=== PATIENT | female | born 1950 | race Asian ===

== ENCOUNTER 2019-11-03 01:09 | Outpatient (CLI) | payer MEDICARE, SELFPAY ==
[2019-11-03 14:01] LABS: SARS-CoV-2 RNA PCR Negative
== END 2019-11-03 01:10 | disposition home or self-care (01) ==
LOC: ANHCOVIDDT 01:09
PROVIDERS: PCP Family Medicine; Visit Provider Internal Medicine Gastroenterology
DX: Z01.812 Encounter for preprocedural laboratory examination (principal); Z20.828 Contact with and (suspected) exposure to other viral communicable diseases
CPT/HCPCS: 87635; C9803; U0003

== ENCOUNTER 2019-11-06 02:44 | Day surgery (SDC) | payer MEDICARE, SELFPAY ==
[2019-10-30 11:59] VITALS: BMI 27.6
--- NOTE | 2019-11-06 12:28 | WPDANESEPPF ---
Anes - Initial Pre Proc Eval Procedure: Operation Date: 11/06/19 13:15 Proposed Procedures p Esophagogastroduodenoscopy&Screen Colon - Neil Ortiz MD Date/Time: 11/06/19 12:28 Surgeon: Neil Ortiz MD Pre Op Diagnosis: Dysphagia,Neoplasm Screening Patient Data Age: 69 Gender: F Height: 4 ft 11 in Weight: 62 kg Allergies Allergy/AdvReac Type Severity Reaction Status Date / Time codeine AdvReac Intermediate SOB, FEELS Unverified 10/30/19 11:56 LIKE THROAT IS CLOSING UP White Fish Allergy Severe HIVES, Uncoded 10/18/19 11:01 PASS OUT Home Medications Medication Instructions Recorded Confirmed Type albuterol sulfate 90 mcg/actuation 1 inhalation INHALATION Q4-6H PRN 03/13/19 10/30/19 Rx breath activated powder inhaler #3 each aspirin 81 mg tablet,delayed 81 mg PO DAILY #90 tablet 06/07/19 10/30/19 Rx release azelastine 137 mcg (0.1 %) nasal 1 spray NASAL Q12H #30 ml 07/20/19 10/30/19 Rx spray aerosol fluticasone propionate 50 1 spray NASAL Q12H #18.2 ml 07/20/19 10/30/19 Rx mcg/actuation nasal spray,suspension amlodipine 10 mg tablet 10 mg PO DAILY #90 tablet 08/24/19 10/30/19 Rx losartan 25 mg tablet 25 mg PO DAILY #180 tablet 08/24/19 10/30/19 Rx montelukast 10 mg tablet 10 mg PO .qhs #90 tablet 08/24/19 10/30/19 Rx simvastatin 10 mg tablet 10 mg PO DAILY #90 tablet 08/24/19 10/30/19 Rx alendronate 70 mg tablet 70 mg PO WEEKLY #14 tablet 10/18/19 10/30/19 Rx cholecalciferol (vitamin D3) 50 2,000 unit PO DAILY #90 tablet 10/18/19 10/30/19 Rx mcg (2,000 unit) tablet citalopram 10 mg tablet 10 mg PO DAILY #90 tablet 10/18/19 10/30/19 Rx Patient hx anesthesia problems: none Family hx anesthesia problems: none PMFSH Past Medical History Medical History (Updated 09/10/20 @ 11:52 by Kate Gorman PA-C) Asthma Benign reactive hypertension BP (high blood pressure) CAD (coronary atherosclerotic disease) Colon cancer screening GERD (gastroesophageal reflux disease) Mixed hyperlipidemia Restrictive lung disease Social History Social History Social History: Smoking status: Never smoker Second hand tobacco smoke exposure: No Alcohol intake: never Substance use: never Substance use type: does not use Living arrangements: alone Gender identity (if verbalized by the patient): Female Sexual Orientation (if Verbalized by the Patient): Straight or Heterosexual Spiritual care concerns: No Anes - Eval Final PreProcedure Day of Procedure 11/06/19 12:28 Patient weight: normal Heart: regular rate and rhythm Lungs: clear to auscultation Airway: Mallampati scale class II Neurological: alert and oriented Last oral intake: >/= 8 hours ASA classification: III Emergent: no Anesthetic plan: proceed Anesthesia type and monitoring: general GIVS and standard monitoring Informed Consent: The patient's anesthetic plan and its attendant risks and benefits were discussed with the patient/family/POA. Questions were solicited and answers provided to the satisfaction of the patient/family/POA.
[2019-11-06 12:51] VITALS: BP 134/55; PULSE 58; RESP 18; TEMP 36.5; O2SAT 98; BMI 26.7
--- NOTE | 2019-11-06 12:56 | WPDHPUPDATE1 ---
History and Physical Update Update Date/Time: 11/06/19 12:56 History and Physical has been reviewed, including an updated exam of the patient. There are NO changes in the patient's condition. Risks, benefits, and alternatives have been discussed and questions answered. Patient agrees to proceed with procedure.
[2019-11-06] MEDS: LACTATED RINGERS 1,000 ML 150 ML IV CONT (12:57)
[2019-11-06 13:36] VITALS: BP 88/49; PULSE 60; RESP 17; O2SAT 98
[2019-11-06 13:46] VITALS: BP 96/51; PULSE 63; RESP 14; O2SAT 98
[2019-11-06 13:56] VITALS: BP 111/60; PULSE 65; RESP 20; O2SAT 100
[2019-11-06 14:06] VITALS: BP 122/53; PULSE 61; RESP 16; O2SAT 10
== END 2019-11-06 14:30 | disposition home or self-care (01) ==
PROVIDERS: PCP Family Medicine; Visit Provider Internal Medicine Gastroenterology
PROC: 0DJ08ZZ Inspection of Upper Intestinal Tract, Via Natural or Artificial Opening Endoscopic (ICD-10-PCS; CPT 43235; principal; 2019-11-06 13:15)
DX: Z12.11 Encounter for screening for malignant neoplasm of colon (principal); D12.4 Benign neoplasm of descending colon; K63.89 Other specified diseases of intestine; K64.8 Other hemorrhoids; K29.70 Gastritis, unspecified, without bleeding; K21.0 Gastro-esophageal reflux disease with esophagitis; R13.10 Dysphagia, unspecified; I10 Essential (primary) hypertension; I25.10 Atherosclerotic heart disease of native coronary artery without angina pectoris; J45.909 Unspecified asthma, uncomplicated; E78.2 Mixed hyperlipidemia; Z79.84 Long term (current) use of oral hypoglycemic drugs
CPT/HCPCS: 45380; 43239; 87081; 88305; J2704; J7120

== ENCOUNTER 2019-11-15 16:26 | Outpatient (CLI) | payer MEDICARE, SELFPAY ==
--- NOTE | ~2019-11-15 | MM_ITS ---
EXAMINATION: MM screening birdie BI w jaleel HISTORY: Screening TECHNIQUE: Craniocaudal and mediolateral oblique 3-D tomosynthesis images were obtained and synthetic 2-D images were generated. CAD analysis was submitted and interpreted. COMPARISON: Comparison to multiple prior studies sequentially, with oldest reviewed study dated 10/2014. BREAST PARENCHYMAL COMPOSITION: The breasts are heterogeneously dense, which may obscure small masses . FINDINGS: There is no evidence of suspicious mass, calcification, or architectural distortion to sugg est malignancy in either breast. There has been no suspicious interval change. IMPRESSION: 1. No mammographic evidence of malignancy. 2. Recommend routine screening mammography in one year. BI-RADS Category 1: Negative Reviewed, dictated and finalized at location A.
== END 2019-11-15 16:27 | disposition home or self-care (01) ==
PROVIDERS: PCP Family Medicine; Visit Provider Physician Assistant
DX: Z12.31 Encounter for screening mammogram for malignant neoplasm of breast (principal)
CPT/HCPCS: 77063; 77067

== ENCOUNTER 2020-04-21 15:10 | Outpatient (CLI) | payer MEDICARE, SELFPAY | END 2020-04-21 15:11 | disposition home or self-care (01) | LOC: ANHCOVIDVC 15:10 | PROVIDERS: PCP Family Medicine | DX: Z23 Encounter for immunization (principal) | CPT/HCPCS: 0001A; 91300 ==

== ENCOUNTER 2020-05-12 15:17 | Outpatient (CLI) | payer MEDICARE, SELFPAY | END 2020-05-12 15:18 | disposition home or self-care (01) | LOC: ANHCOVIDVC 15:17 | PROVIDERS: PCP Family Medicine | DX: Z23 Encounter for immunization (principal) | CPT/HCPCS: 0002A; 91300 ==

== ENCOUNTER 2020-11-19 13:42 | Outpatient (CLI) | payer MEDICARE, SELFPAY ==
--- NOTE | ~2020-11-19 | DEXA_ITS ---
Bone Density Report Name: Laura Guillory Age: 70 Sex: Female Ethnicity: Date of : 1950 Indication: postmenopausal osteoporosis; monitoring treatment; height loss; prior fracture; Referring Provider: Jessie Solomon Study: Bone densitometry was performed. Exam Date: November 19, 2020 Accession number: [id number] Bone Density: Region BMD T-score Z-score Classification AP Spine (L1-L4) 0.755 -2.7 -0.5 Osteoporosis Femoral Neck (Left) 0.602 -2.2 -0.3 Osteopenia Total Hip (Left) 0.819 -1.0 0.6 Normal Total Hip Bilateral Avg 0.794 -1.2 0.4 Osteopenia Femoral Neck (Right) 0.580 -2.4 -0.5 Osteopenia Total Hip (Right) 0.768 -1.4 0.2 Osteopenia World Health Organization criteria for BMD impression classify patients as: Normal (T-score at or above -1.0), Osteopenia (T-score between -1.0 and -2.5), or Osteoporosis (T-score at or below -2.5). 10-year Fracture Risk: FRAX not reported because: Some T-score for Spine Total or Hip Total or Femoral Neck at or below -2.5 Treated for osteoporosis Previous Exams: Region Exam Age BMD T-score BMD Change BMD Change Date g/cm2 vs Baseline vs Previous AP Spine(L1-L4) 11/19/2020 70 0.755 -2.7 -0.013(-1.7%)# 0.099(15.1%)# 11/02/2018 68 0.656 -3.6 -0.112(-14.6%) -0.055(-7.7%)# 07/27/2016 66 0.711 -3.1 -0.057(-7.5%)# -0.022(-3.0%) 04/15/2014 63 0.733 -2.9 -0.035(-4.6%)# 0.002(0.3%)# 09/22/2011 61 0.731 -2.9 -0.037(-4.9%)# 0.022(3.1%)# 02/15/2009 58 0.709 -3.1 -0.059(-7.7%)* 0.006(0.8%) 01/29/2008 57 0.703 -3.1 -0.065(-8.5%)* -0.095(-11.9%) 04/22/2005 55 0.798 -2.3 0.030(3.9%)* 0.030(3.9%)* 03/16/2003 52 0.769 -2.5 Total Hip(Left) 11/19/2020 70 0.819 -1.0 0.043(5.5%)# 0.005(0.6%) 11/02/2018 68 0.814 -1.1 0.038(4.9%)# 0.036(4.7%)* 07/27/2016 66 0.777 -1.3 0.002(0.2%)# -0.036(-4.5%)* 04/15/2014 63 0.814 -1.1 0.038(4.9%)# 0.022(2.7%)# 09/22/2011 61 0.792 -1.2 0.016(2.1%)# 0.011(1.4%)# 02/15/2009 58 0.781 -1.3 0.006(0.8%) -0.014(-1.7%) 01/29/2008 57 0.795 -1.2 0.019(2.5%) -0.013(-1.6%) 04/22/2005 55 0.808 -1.1 0.033(4.2%)* 0.033(4.2%)* 03/16/2003 52 0.776 -1.4 Total Hip(Right) 11/19/2020 70 0.768 -1.4 -0.001(-0.1%)# -0.007(-1.0%) 11/02/2018 68 0.775 -1.4 0.007(0.8%)# 0.017(2.3%) 07/27/2016 66 0.758 -1.5 -0.011(-1.4%)# -0.029(-3.7%)* 04/15/2014 63 0.787 -1.3 0.018(2.4%)# 0.004(0.5%)# 09/22/2011 61 0.783 -1.3 0.014(1.9%)# -0.008(-1.0%)# 02/15/2009 58 0.791 -1.2 0.022(2.9%) 0.033(4.3%)* 01/29/2008 57 0.758 -1.5
--- NOTE | ~2020-11-19 | MM_ITS ---
EXAMINATION: MM screening birdie BI w jaleel HISTORY: Screening TECHNIQUE: Craniocaudal and mediolateral oblique 3-D tomosynthesis images were obtained and synthetic 2-D images were generated. CAD analysis was submitted and interpreted. COMPARISON: Comparison to multiple prior studies sequentially, with oldest reviewed study dated 04/20. BREAST PARENCHYMAL COMPOSITION: The breasts are heterogeneously dense, which may obscure small masses . FINDINGS: There is no evidence of suspicious mass, calcification, or architectural distortion to sugg est malignancy in either breast. There has been no suspicious interval change. IMPRESSION: 1. No mammographic evidence of malignancy. 2. Recommend routine screening mammography in one year. BI-RADS Category 1: Negative Reviewed, dictated and finalized at location A.
== END 2020-11-19 13:43 | disposition home or self-care (01) ==
LOC: ANHIMG 13:45
PROVIDERS: PCP Family Medicine; Visit Provider Student in an Organized Health Care Education/Training Program
DX: Z12.31 Encounter for screening mammogram for malignant neoplasm of breast (principal); Z78.0 Asymptomatic menopausal state; M81.0 Age-related osteoporosis without current pathological fracture; M85.851 Other specified disorders of bone density and structure, right thigh; M85.852 Other specified disorders of bone density and structure, left thigh
CPT/HCPCS: 77063; 77067; 77080

== ENCOUNTER 2020-12-18 01:18 | Day surgery (SDC) | payer MEDICARE, SELFPAY ==
[2020-12-12 09:05] VITALS: BMI 26.5
--- NOTE | 2020-12-12 09:10 | PC.NURSE ---
Report to the Outpatient Waiting Room, entrance under the green pavilion located off [facility], at time __729 on date _12/18/20 . OR Time: . - You and your visitor will be asked a series of questions to screen for COVID 19 for your protection. - A mask is required within the hospital. - Only one visitor is allowed at this time. Patient visitors will be guided where to wait when not with patient. Preoperative COVID Testing Requirements: No COVID Test needed if: (proof is required; if not received patient will have Rapid Test prior to entry) - Patient has received COVID Vaccine at least 14 days prior to procedure date or - Patient has positive COVID test result within last 90 days of surgery date. COVID Test needed if above criteria is not met If not COVID vaccinated a COVID test must be conducted within 72 hours of surgery and patient is asked to isolate self from time of testing until procedure. You will go to the [facility] for your COVID testing. The [facility] site is located at the corner of [address] [facility]. You will only be called if COVID results are positive and your surgeon may reschedule your elective surgery date. Patients may have clear liquids (water, carbonated beverages, clear teas, apple juice) until 3 hours prior to surgery with a maximum of 20 ounces. - No food from midnight until time of surgery - Infants may have breast milk until 4 hours before surgery, infant formula 6 hours prior to surgery. - Children will be allowed to drink immediately following surgery. If applicable, please bring a bottle or sippy cup to assist with drinking. Juice, water, soda, and popsicles are readily available. For infants on formula, please bring formula the day of surgery. Pacifiers are allowed. Take the following medications with a SIP of water the morning of surgery: _AMLODIPINE,CITALOPRAM, INHALER IF NEEDED Medications to discontinue per physician ____ALL VITAMINS AND SUPPLEMENTS Date to take last dose___12/14/20 Please no make-up, nail bruneian, hairspray, perfume, deodorant, or body powder the day of surgery. No jewelry (including any body piercings) or valuables the day of surgery, leave them at home. Please take a shower or bath the night before, or the morning of, surgery with an antibacterial soap. Wear comfortable, loose fitting clothing. Children are encouraged to wear pajamas. - Jewelry must be removed prior to entering the operating room. Rings and piercings that are not removed may be cut off. - The hospital will not accept responsibility for valuables. - Please leave all valuables, including medications, at home the day of surgery. If you are going home after surgery, a licensed regional otr company driver must drive you home. - NO public transportation without another adult. - We recommend that an adult stay with you for 24 hours following discharge. - We also recommend that you do not drive, make important decision, drink alcoholic beverages, or take any drugs that were not prescribed by your health care provider for at least 24 hours after your discharge time. For Pediatric surgeries, we recommend two adults accompany the child home (only one inside the building at this time). Follow any additional instructions given to you from your surgeon. Telephone instructions given to _PATIENT and asked if any additional questions and then verbalized understanding. Patient advised to call surgeon office or pre surgery nurse liaison [phone] if any additional questions.
--- NOTE | 2020-12-17 13:46 | WPDANESEPPF ---
Anes - Initial Pre Proc Eval Procedure: Operation Date: 12/18/20 09:30 Proposed Procedures p Partial Palmar Fasciectomy Right Fifth Finger - Lei Hughes MD Date/Time: 12/17/20 13:46 Surgeon: Lei Hughes MD Pre Op Diagnosis: Dupuytren's Fracture Right Fifth Finger Patient Data Age: 70 Gender: F Height: 1.52 m Weight: 61.7 kg Allergies Allergy/AdvReac Type Severity Reaction Status Date / Time codeine AdvReac Intermediate SOB, FEELS Verified 12/18/20 07:49 LIKE THROAT IS CLOSING UP White Fish Allergy Severe HIVES, Uncoded 12/18/20 07:49 PASS OUT Home Medications Medication Instructions Recorded Confirmed Type calcium carbonate 600 mg calcium 600 mg PO DAILY 04/14/20 12/18/20 History (1,500 mg) tablet citalopram 10 mg tablet 10 mg PO BID #180 tablet 07/22/20 12/18/20 Rx alendronate 70 mg tablet 70 mg PO WEEKLY #14 tablet 08/11/20 12/18/20 Rx albuterol sulfate 90 mcg/actuation 1 inh INHALATION Q4-6H PRN #3 each 11/18/20 12/18/20 Rx breath activated powder inhaler amlodipine 10 mg tablet 10 mg PO DAILY #90 tablet 11/18/20 12/18/20 Rx cholecalciferol (vitamin D3) 50 2,000 unit PO DAILY #90 tablet 11/18/20 12/18/20 Rx mcg (2,000 unit) tablet omeprazole 20 mg capsule,delayed 20 mg PO DAILY #90 cap 11/18/20 12/18/20 Rx release simvastatin 10 mg tablet 10 mg PO DAILY #90 tablet 11/18/20 12/18/20 Rx aspirin 81 mg PO HS 12/12/20 12/18/20 History losartan 25 mg PO QPM 12/12/20 12/18/20 History montelukast 10 mg PO HS 12/12/20 12/18/20 History Patient hx anesthesia problems: none Family hx anesthesia problems: none Results Review: All pre-operative results and documents have been reviewed as part of the pre-operative evaluation. [facility] Past Medical History Medical History (Updated 12/17/20 @ 13:47 by Honorio Billy MD) Anxiety Asthma Benign reactive hypertension BP (high blood pressure) CAD (coronary atherosclerotic disease) Colon cancer screening TAINA (generalized anxiety disorder) GERD (gastroesophageal reflux disease) Major depressive disorder, recurrent, moderate Mixed hyperlipidemia Osteoporosis Palmar fibromatosis Restrictive lung disease Sacroiliac joint pain Trigger finger of right hand Family History Family History Father Hypertension Cerebrovascular accident Mother Family history of heart disease in male family member before age 55 Patient's mother is Sibling Patient's sister is Patient's brother is Hypertension Social History Social History (Updated 11/18/20 @ 10:35 by Ciera Nicole) Social History: Smoking status: Never smoker Second hand tobacco smoke exposure: No Alcohol intake: never Substance use: never Substance use type: does not use Living arrangements: with family Gender identity (if verbalized by the patient): Female Sexual Orientation (if Verbalized by the Patient): Straight or Heterosexual Spiritual care concerns: No Anes - Eval Final PreProcedure Day of Procedure 12/17/20 13:46 Patient weight: overweight Heart: regular rate and rhythm Lungs: clear to auscultation and normal air movement Airway: Mallampati scale class II Neurological: alert and oriented Last oral intake: >/= 8 hours ASA classification: III Emergent: no Anesthetic plan: proceed Anesthesia type and monitoring: general GIVS Results Review: All pre-operative results and documents have been reviewed as part of the pre-operative evaluation. Informed Consent: The patient's anesthetic plan and its attendant risks and benefits were discussed with the patient/family/POA. Questions were solicited and answers provided to the satisfaction of the patient/family/POA.
--- NOTE | 2020-12-18 07:14 | WPDHPUPDATE1 ---
History and Physical Update Update Date/Time: 12/18/20 07:14 History and Physical has been reviewed, including an updated exam of the patient. There are NO changes in the patient's condition. Risks, benefits, and alternatives have been discussed and questions answered. Patient agrees to proceed with procedure.
--- NOTE | 2020-12-18 07:15 | WPDHPUPDATE1 ---
History and Physical Update Update Date/Time: 12/18/20 The diagnosis i07:15 The diagnosis is Dupuytren's contracture not fracture. History and Physical has been reviewed, including an updated exam of the patient. There are NO changes in the patient's condition. Risks, benefits, and alternatives have been discussed and questions answered. Patient agrees to proceed with procedure.
[2020-12-18] MEDS: LACTATED RINGERS 1,000 ML 30 ML IV CONT (08:12)
[2020-12-18 08:15] VITALS: BP 114/53; PULSE 57; RESP 16; TEMP 36.8; O2SAT 100
[2020-12-18] MEDS: BACITRACIN OINTMENT 15 GM TUBE 1 APPLIC TOPICAL (09:24)
[2020-12-18] MEDS: LIDO 1%/EPINEPHRINE 1:100,000 50 ML VIAL 12 ML INFILTRATE (09:24)
[2020-12-18 10:47] VITALS: BP 100/48; PULSE 66; RESP 16; O2SAT 96
--- NOTE | 2020-12-18 11:10 | W.PM.PROC2 ---
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 The patient was taken to the operating room placed supine on the operating table. A time-out was held and confirmed. She was given IV sedation extremity was prepped and draped in usual fashion. The site was marked for an incision for a radially based flap with diagonal extensions.. The digit was anesthetized with 1% lidocaine with epinephrine. The hand was elevated and the tourniquet inflated to 250 mmHg. The incisions were made as marked and skin flaps elevated. This exposed the Dupuytren's nodule extending off the abductor digiti minimi. This was also a spiral cord concealing the ulnar digital neurovascular bundle there was no nodule or cord on the radial side. This mass was carefully dissected free from the neurovascular bundle and taken off the tendon sheath. It also required sacrifice of the abductor tendon as well. Removal of this allowed full extension the proximal interphalangeal joint. The tourniquet was released very little cautery was utilized we held the hand for hemostasis for about 5 minutes. The wound was closed with a running 5 0 nylon suture in a single layer she is a prescription for hydrocodone 6 Estimated Blood Loss 6 Drains No Packing No Pathology none sent Complications No immediate complications Condition stable Disposition same day
[2020-12-18 11:15] VITALS: BP 110/54; PULSE 59; RESP 16; O2SAT 97
[2020-12-18 11:45] VITALS: BP 100/48; PULSE 65; RESP 16
== END 2020-12-18 11:55 | disposition home or self-care (01) ==
PROVIDERS: PCP Family Medicine; Visit Provider Plastic Surgery
PROC: (CPT 26045; principal; 2020-12-18 09:30)
DX: M72.0 Palmar fascial fibromatosis [Dupuytren] (principal); I25.10 Atherosclerotic heart disease of native coronary artery without angina pectoris; I10 Essential (primary) hypertension; J45.909 Unspecified asthma, uncomplicated; F41.1 Generalized anxiety disorder; K21.9 Gastro-esophageal reflux disease without esophagitis; F33.1 Major depressive disorder, recurrent, moderate; E78.2 Mixed hyperlipidemia; M81.0 Age-related osteoporosis without current pathological fracture; Z79.82 Long term (current) use of aspirin; Z79.51 Long term (current) use of inhaled steroids
CPT/HCPCS: 26123; A9270; J1100; J2405; J2704; J3010; J7120

== ENCOUNTER 2022-05-19 07:28 | Outpatient (CLI) | payer MEDICARE, SELFPAY ==
--- NOTE | ~2022-05-19 | XR_ITS ---
EXAMINATION: XR chest 2V 05/19/2022 07:51 INDICATION: Asthma. PROCEDURE: 2 view chest COMPARISON: 08/25/2018 FINDINGS: The lungs are clear. The cardiomediastinal silhouette is within normal limits. There are no pleural effusions. There is no pneumothorax suspected. IMPRESSION: 1: NO ACUTE CARDIOPULMONARY DISEASE. Reviewed, dictated and finalized at location D.
[2022-05-19 08:33] LABS: Basophils Percent Auto 0.2 % (0.2-1.2); Eosinophils Absolute Auto 0.2 K/mm3 (0-0.3); Eosinophils Percent Auto 4.6 % (0-4.4); Hematocrit 43.6 % (37.0-47.0); Hemoglobin 14.1 g/dL (12.0-15.0); Immature Granulocyte Absolute 0.01 K/mm3 (0.00-0.031); Immature Granulocyte Percent A 0.2 % (0-0.5); Lymphocytes Absolute Auto 2.02 K/mm3 (0.9-3.2); Lymphocytes Percent Auto 44.4 % (18.3-44.2); Mean Corpuscular HGB Conc 32.3 g/dl (32-36); Mean Corpuscular Volume 92.8 fl (80-100); Mean Platelet Volume 10.6 fl (7.4-10.4); Monocytes Absolute Auto 0.3 K/mm3 (0.1-0.6); Monocytes Percent Auto 6.2 % (2.6-8.5); Neutrophils Percent Auto 44.4 % (45.5-73.1); Platelet Count Result 215 k/mm3 (150-375); Red Cell Distribution Width 12.4 % (11.5-14.5); White Blood Count 4.6 K/mm3 (4.5-10.0)
[2022-05-19 08:53] LABS: Alanine Aminotransferase 24 U/L (6-35); Albumin Level 4.4 g/dL (3.5-5.1); Alkaline Phosphatase 53 U/L (38-126); Anion Gap 4 mmol/L (8-16); Aspartate Amino Transferase 28 U/L (14-36); Bilirubin,Total 0.5 mg/dL (0.2-1.3); Blood Urea Nitrogen 11 mg/dL (7-17); Carbon Dioxide 33 mmol/L (22-30); Chloride 105 mmol/L (98-107); Cholesterol 165 mg/dL (0-200); Estimated Glomerular Filt Rate > 60; Glucose 105 mg/dL (65-110); HDL Direct 49 mg/dL; Potassium 3.6 mmol/L (3.4-5.0); Sodium 142 mmol/L (137-145); Triglycerides 56 mg/dL (<150)
[2022-05-19 09:04] LABS: LDL Cholesterol Direct 91 mg/dL
== END 2022-05-19 07:29 | disposition home or self-care (01) ==
PROVIDERS: PCP Family Medicine; Visit Provider Nurse Practitioner Gerontology
DX: J45.909 Unspecified asthma, uncomplicated (principal); I10 Essential (primary) hypertension; E78.2 Mixed hyperlipidemia
CPT/HCPCS: 36415; 71046; 80053; 80061; 85025

== ENCOUNTER 2022-06-08 08:40 | Outpatient (CLI) | payer MEDICARE, SELFPAY ==
[2022-06-08 08:56] LABS: Appearance Urine Clear (Clear); Bilirubin Urine Negative (Negative); Blood Urine Negative (Negative); Color Urine Yellow (Yellow); Glucose Urine UA Negative (Negative); Ketones Urine Negative (Negative); Leukocyte Esterase Ur Negative LEU/UL (Negative); Nitrate Urine Negative (Negative); Protein Urine Negative (Negative); Specific Grav Ur 1.014 (1.001-1.035); Urobilinogen Urine 0.2 mg/dL (<2.0)
[2022-06-08 09:08] LABS: Add Urine Microscopic? NO
== END 2022-06-08 08:41 | disposition home or self-care (01) ==
LOC: ANHLAB 08:41
PROVIDERS: PCP Family Medicine; Visit Provider Obstetrics & Gynecology
DX: R31.9 Hematuria, unspecified (principal)
CPT/HCPCS: 81001; 81003

== ENCOUNTER 2022-07-22 15:02 | Outpatient (CLI) | payer MEDICARE, SELFPAY ==
--- NOTE | ~2022-07-22 | MM_ITS ---
EXAMINATION: MM screening birdie BI w jaleel HISTORY: Screening mammogram TECHNIQUE: Craniocaudal and mediolateral oblique 3-D tomosynthesis images were obtained and synthetic 2-D images were generated. CAD analysis was submitted and interpreted. COMPARISON: 11/19/2020, 11/15/2019 bilateral screening mammogram examinations 11/07/2018 diagnostic right mammogram and complete right breast ultrasound 10/02/2018 bilateral screening mammogram BREAST PARENCHYMAL COMPOSITION: The breasts are heterogeneously dense, which may obscure small masses . FINDINGS: There is no evidence of suspicious mass, calcification, or architectural distortion to sugg est malignancy in either breast. There has been no suspicious interval change. IMPRESSION: 1. No mammographic evidence of malignancy. 2. Recommend routine screening mammography in one year. BI-RADS Category 1: Negative Reviewed, dictated and finalized at location A.
== END 2022-07-22 15:03 | disposition home or self-care (01) ==
LOC: ANHIMG 15:03
PROVIDERS: PCP Family Medicine; Visit Provider Student in an Organized Health Care Education/Training Program
DX: Z12.31 Encounter for screening mammogram for malignant neoplasm of breast (principal)
CPT/HCPCS: 77063; 77067

== ENCOUNTER 2022-10-27 08:14 | Outpatient (CLI) | payer MEDICARE, SELFPAY ==
--- NOTE | ~2022-10-27 | US_ITS ---
Limited Abdominal Sonogram: Real-time sonographic imaging of the right upper quadrant was performed. Clinical History: Abdominal pain Findings: The liver appears normal with no evidence of mass lesion or bile duct dilatation. Main por kendall vein demonstrates normal direction of flow. The gallbladder is well distended, and appears normal with no evidence of gallstone or wall thickening. The common bile duct is nondilated. The visualize d pancreas, aorta, and IVC are unremarkable. Impression: No significant abnormality seen. Reviewed, dictated and finalized at location M. Impression: No significant abnormality seen.
== END 2022-10-27 08:15 | disposition home or self-care (01) ==
PROVIDERS: PCP Family Medicine; Visit Provider Physician Assistant
DX: R10.11 Right upper quadrant pain (principal)
CPT/HCPCS: 76705

== ENCOUNTER → 2022-12-01 09:42 | Outpatient (CLI) | payer MEDICARE, SELFPAY ==
--- NOTE | ~2022-12-01 | XR_ITS ---
XR_[id number]_CR 12/01/2022 09:55 Indication: Cervicalgia Procedure: 6 view cervical spine Comparison: 04/01/2007 Findings: Straightening of cervical lordosis. There is disc narrowing and endplate hypertrophy at C4- 5 and C5-6. There is multilevel uncinate and facet hypertrophy. No fracture or traumatic malalignment . Odontoid process is normal. Lateral masses normally aligned. Impression: 1: Moderate cervical spondylosis. Reviewed, dictated and finalized at location B. Impression: 1: Moderate cervical spondylosis.
== END ==
PROVIDERS: PCP Family Medicine; Visit Provider Physician Assistant
DX: M43.02 Spondylolysis, cervical region (principal)
CPT/HCPCS: 72040

== ENCOUNTER 2022-12-27 07:36 | Outpatient (CLI) | payer MEDICARE, SELFPAY ==
--- NOTE | ~2022-12-27 | DEXA_ITS ---
Bone Density Report Name: HARPREET BLISS Age: 72 Sex: Female Ethnicity: A Date of : 1950 Indication: postmenopausal; screening for osteoporosis; asthma or emphysema; Referring Provider: HANS LEE Study: Bone densitometry was performed. Exam Date: December 27, 2022 Accession number: [id number] Bone Density: Region BMD T-score Z-score Classification AP Spine(L1-L4) 0.737 -2.8 -0.5 Osteoporosis Femoral Neck (Left) 0.588 -2.3 -0.3 Osteopenia Total Hip (Left) 0.811 -1.1 0.6 Osteopenia Femoral Neck (Right) 0.584 -2.4 -0.4 Osteopenia Total Hip (Right) 0.754 -1.5 0.2 Osteopenia Total Hip Mean 0.783 -1.3 0.4 Osteopenia World Health Organization criteria for BMD impression classify patients as: Normal (T-score at or above -1.0), Osteopenia (T-score between -1.0 and -2.5), or Osteoporosis (T-score at or below -2.5). 10-year Fracture Risk: FRAX not reported because: Some T-score for Spine Total or Hip Total or Femoral Neck at or below -2.5 Treated for osteoporosis Clinical Information Provided by Patient: Is being treated for osteoporosis Has used the following medications: Fosamax (i.e. alendronate), Vitamin D, Calcium Has the following medical conditions: Asthma or Emphysema Patient maximum height was 60 Menopause Age: 44 No regular weight bearing exercise Drinks caffeinated beverages Onset of menses at age 17 Number of children 1 Impression: The patient has osteoporosis, based on the Total Spine T-score. Discussion: It is important to ask patients whether they are taking their medications and to encourage continued and appropriate compliance with their osteoporosis therapies to reduce fracture risk. It is also important to review their risk factors and encourage appropriate calcium and vitamin D intakes, exercise, fall prevention and other lifestyle measures. Follow-Up: Consider a repeat BMD and Vertebral Fracture Assessment (VFA) exam in 2 years or sooner if medically necessary, to reassess this patient's status. Reported by: ANGIE on 12/27/2022 8:09:00 AM. Reviewed, dictated and finalized at location AScott BEASLEY
== END 2022-12-27 07:37 | disposition home or self-care (01) ==
LOC: ANHIMG 07:38
PROVIDERS: PCP Family Medicine; Visit Provider Obstetrics & Gynecology
DX: Z78.0 Asymptomatic menopausal state (principal); M81.0 Age-related osteoporosis without current pathological fracture; M85.89 Other specified disorders of bone density and structure, multiple sites
CPT/HCPCS: 77080

== ENCOUNTER 2023-05-26 09:11 | Emergency (ER) | payer MEDICARE, SELFPAY ==
[2023-05-26 09:23] VITALS: BP 102/50; PULSE 70; RESP 18; TEMP 36.4; O2SAT 100
--- NOTE | 2023-05-26 09:32 | ED.URI ---
HPI - URI/Sore Throat General Chief Complaint: Upper Respiratory Infection Stated Complaint: Cough Time Seen by Provider: 05/26/23 09:32 Source: patient, RN notes reviewed and old records reviewed Mode of arrival: ambulatory Limitations: no limitations History of Present Illness HPI Narrative: 73-year-old female presents to the [facility] with a cough since , approximately 3 weeks. Patient did see her doctor 8 days ago on May 17 for the cough. Was prescribed singular, prednisone and doxycycline. Patient states that the cough has not changed. Patient is concerned because she is leaving for the [facility] in 13 days and does not want have cough. States the cough is worse at night. Patient reports a history of asthma but is not having any problems breathing or chest pain. Onset (ago): week(s) (Three weeks) Related Data Home Medications Medication Instructions Recorded Confirmed aspirin 81 mg tablet,delayed 81 mg PO HS 12/12/20 05/26/23 release omega [id number]-wuf-fish oil 60 mg-90 1 cap PO DAILY 03/07/23 05/26/23 mg-500 mg capsule (Fish Oil) Allergies Allergy/AdvReac Type Severity Reaction Status Date / Time codeine AdvReac Intermediate SOB, FEELS Verified 05/26/23 09:13 LIKE THROAT IS CLOSING UP White Fish Allergy Severe HIVES, Uncoded 05/26/23 09:13 PASS OUT Review of Systems Review of Systems: All systems reviewed & are unremarkable except as noted in HPI and below Constitutional: Constitutional: Reports no additional constitutional complaints Eyes: Eyes: Reports no additional eye complaints ENT: Reports system reviewed and no additional complaints, except as documented Cardiovascular: Cardiovascular: Reports no additional cardiovascular complaints, Denies chest pain and Denies dyspnea Respiratory: Respiratory: Reports as per HPI, Denies chest congestion, Reports cough and Denies dyspnea Gastrointestinal: Gastrointestinal: Reports no additional gastrointestinal complaints, Denies abdominal pain, Denies nausea and Denies vomiting Musculoskeletal: Musculoskeletal: Reports no additional musculoskeletal complaints Integumentary/Breasts: Skin/Breast: Reports system reviewed and no additional complaints, except as docu Neurologic: Reports system reviewed and no additional complaints, except as documented Psychiatric: Psychiatric: Reports no additional psychiatric complaints Allergic/Immunologic: Allergic/Immunologic: Reports no additional allergic/immunologic complaints PMFSH Past Medical History Medical History Anxiety Asthma Benign reactive hypertension BP (high blood pressure) CAD (coronary atherosclerotic disease) Colon cancer screening TAINA (generalized anxiety disorder) GERD (gastroesophageal reflux disease) Major depressive disorder, recurrent, moderate Mixed hyperlipidemia Osteoporosis Palmar fibromatosis Restrictive lung disease Sacroiliac joint pain Trigger finger of right hand Surgical History Surgical History History of hand surgery Family History Family History Father Hypertension Cerebrovascular accident Mother Family history of heart disease in male family member before age 55 Patient's mother is Sibling Patient's sister is Patient's brother is Hypertension Social History Social History Social History: Smoking status: Never smoker Second hand tobacco smoke exposure: No Alcohol intake: never Substance use: never Substance use type: does not use Do You Feel Safe in your Home?: Yes Lack of Transportation: No Lack of Food: Sometimes True Current Housing: I Have Housing Concerned About Future Housing: No Difficulty Paying Gas/Electric Bills: No D
== END 2023-05-26 09:51 | disposition home or self-care (01) ==
PROVIDERS: Emergency Provider Nurse Practitioner; PCP Nurse Practitioner Family
DX: R09.82 Postnasal drip (principal); J30.2 Other seasonal allergic rhinitis; I25.10 Atherosclerotic heart disease of native coronary artery without angina pectoris; K21.9 Gastro-esophageal reflux disease without esophagitis; E78.2 Mixed hyperlipidemia; M81.0 Age-related osteoporosis without current pathological fracture; J45.909 Unspecified asthma, uncomplicated; I10 Essential (primary) hypertension; Z79.82 Long term (current) use of aspirin; F41.1 Generalized anxiety disorder; F33.9 Major depressive disorder, recurrent, unspecified
CPT/HCPCS: 99213; G0463

== ENCOUNTER 2024-04-02 10:45 | Outpatient (CLI) | payer MEDICARE, SELFPAY ==
--- OUTSIDE RECORDS SUMMARY | 2024-04-02 12:26 | XMS_ITS | Clinical Summary ---
Author Organization [facility] Care Team Providers Care End Worker Name Role Phone Unavailable Primary Care Provider Unavailabl e Social History Tobacco Use Types Packs/Day Years Used Date Smoking Tobacco: Never Assessed Comments Unknown Sex and Gender Information Value Date Recorded Sex Assigned at Not on file Legal Sex Female 7:49 PM CDT Gender Identity Not on file Sexual Orientation Not on file Plan of Treatment Not on file
--- OUTSIDE RECORDS SUMMARY | 2024-04-02 12:26 | XMS_ITS | Clinical Summary ---
Author Organization [facility] [place] [address] Address [address] [place] [address] Care Team Providers Care Supervisor Prop Making Name Role Phone Sirisha Vargas MD Primary Care Provider Allergies Active Allergy Reactions Criticality Noted Date Comments Codeine Unknown 09/16/2022 Hydrocodone-Acetaminophen Unknown 09/06/2018 Medications solifenacin (VESIcare) 5 mg tablet Take 1 tablet (5 mg total) by mouth daily 3 Active omeprazole (PriLOSEC) 40 mg capsule Take 1 capsule (40 mg total) by mouth daily 3 Active losartan (COZAAR) 25 mg tablet Take 1 tablet (25 mg total) by mouth daily Active simvastatin (ZOCOR) 10 mg tablet Take 1 tablet (10 mg total) by mouth nightly Active citalopram (CeleXA) 10 mg tablet Take 1 tablet (10 mg total) by mouth daily Active amLODIPine (NORVASC) 10 mg tablet Take 1 tablet (10 mg total) by mouth daily Active aspirin 81 mg enteric coated tablet Take 1 tablet (81 mg total) by mouth daily Active fluticasone propionate (FLONASE) 50 mcg/actuation nasal sprayIndications :Allergic rhinitis due to pollen, unspecified seasonality Administer 2 sprays into each nostril daily 2 each 3 3 Active cetirizine (ZyrTEC) 10 mg tabletIndication s:Allergic rhinitis due to pollen, unspecified seasonality Take 1 tablet (10 mg total) by mouth daily 30 tablet 3 3 Active Active Problems Problem Noted Date Diagnosed Date Tinnitus of both ears 09/16/2022 Allergic rhinitis due to pollen 09/16/2022 Sensorineural hearing loss (SNHL) of both ears 0 09/16/2022 Surgical History Surgery Date Site/Laterality Comments EAR SURGERY Right SECTION FINGER SURGERY TONSILLECTOMY EYE SURGERY cataracts Medical History Medical History Date Comments Allergic rhinitis Asthma Anxiety Cataracts, bilateral Hypertension HL (hearing loss) GERD (gastroesophageal reflux disease) Family History Medical History Relation Name Comments Hypertension Father Hypertension Mother Relation Name Status Comments Father Mother Social History Tobacco Use Types Packs/Day Years Used Date Smoking Tobacco: Never Smokeless Tobacco: Never Tobacco Cessation:Counseling Given: Not Answered Personal Safety Answer Date Recorded Getting School Help Needed Not on file 04/03 Comments Unknown Sex and Gender Information Value Date Recorded Sex Assigned at Not on file 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 Gender Identity Not on file Sexual Orientation Not on file Obstetrics History Last Filed Vital Signs Vital Sign Reading Time Taken Comments Blood Pressure - - Pulse - - Temperature - - Respiratory Rate 18 09/16/2022 2:50 PM CDT Oxygen Saturation - - Inhaled Oxygen Concentration - - Weight 60.3 kg (133 lb) 09/16/2022 2:50 PM CDT Height 152.4 cm (5') 09/16/2022 2:50 PM CDT Body Mass Index 25.97 09/16/2022 2:50 PM CDT Plan of Treatment Health Maintenance Due Date Last Done Comments Breast Cancer Screening-Mammogram 1950 Colon Cancer Screening-Colonoscopy 1950 Depression Screening 1950 Fall Risk Assessment 1950 Hepatitis C Screening 1950 Osteoporosis Screening-Bone Density Scan 1949 DTaP/Tdap/Td Vaccine (1 - Tdap) 1960 Hepatitis B Screening 04/19/1967 Pneumococcal vaccine 65+ (1 of 1 - PCV) 04/19/1999 Zoster Vaccine (1 of 2) 04/19/1999 Well Visit 65+ 2014 Influenza Vaccine (#1) 2023 Insurance [employer]CR HMO REF MEDICARE SOLUTIONS [id number] [id number] Care Teams Supervisor Prop Making Relationship Specialty Start Date End Date Sirisha Vargas MD [address] [facility] [[email or web address] [address] [place] [address] PCP - General Family Medicine 08/28/18
--- OUTSIDE RECORDS SUMMARY | 2024-04-02 12:26 | XMS_ITS | Referral Summary ---
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
--- OUTSIDE RECORDS SUMMARY | 2024-04-02 12:26 | XMS_ITS | Clinical Summary ---
Author Organization [facility] Address [address] [place] [address] Care Team Providers Care Butt Maker Name Role Phone Owen Orozco MD Primary Care Provider Social History Tobacco Use Types Packs/Day Years Used Date Smoking Tobacco: Never Assessed Comments Unknown Sex and Gender Information Value Date Recorded Sex Assigned at Not on file Legal Sex Female 4:49 PM CDT Gender Identity Not on file Sexual Orientation Not on file Plan of Treatment Health Maintenance Due Date Last Done Comments Colorectal Cancer Screening Colonoscopy (10 Years) 1949 Hepatitis C 04/19/1967 DTaP, Tdap and Td Vaccines ( 1 - Tdap) 1968 Mammogram Screening 1989 Zoster Vaccines (1 of 2) 04/19/1999 Dexa Scan (General) 2014 Pneumococcal Vaccine: 65+ Ye ars (1 of 1 - PCV) 2014 COVID-19 Vaccine ( - 2023-2 5 season) 2023 Influenza Adult (#1) 2023 RSV Immunization or 60+ Years (1 - 1-dose 75+ series) 2024 Meningococcal B Vaccine Aged Out No l onger eligible based on patient's age to complete this topic Meningococcal Vaccine Aged Out No clif foster eligible based on patient's age to complete this topic RSV Immunizations Under 20 Months Aged Out No longer eligible based on patient's age to complete this topic Care Teams Butt Maker Relationship Specialty Start Date End Date Owen Orozco MD PCP - General 06/14/14
[2024-04-02 13:05] LABS: Basophils Percent Auto 0.5 % (0.2-1.2); Eosinophils Absolute Auto 0.2 K/mm3 (0-0.3); Eosinophils Percent Auto 3.9 % (0-4.4); Hematocrit 43.5 % (37.0-47.0); Hemoglobin 14.2 g/dL (12.0-15.0); Immature Granulocyte Absolute 0.01 K/mm3 (0.00-0.031); Immature Granulocyte Percent A 0.2 % (0-0.5); Lymphocytes Absolute Auto 2.41 K/mm3 (0.9-3.2); Lymphocytes Percent Auto 55.9 % (18.3-44.2); Mean Corpuscular HGB Conc 32.6 g/dl (32-36); Mean Corpuscular Hemoglobin 29.5 pg (26-34); Mean Corpuscular Volume 90.2 fl (80-100); Mean Platelet Volume 10.5 fl (7.4-10.4); Monocytes Absolute Auto 0.3 K/mm3 (0.1-0.6); Monocytes Percent Auto 7.7 % (2.6-8.5); Neutrophils Absolute Auto 1.4 K/mm3 (1.3-6.7); Neutrophils Percent Auto 31.8 % (45.5-73.1); Platelet Count Result 218 k/mm3 (150-375); Red Blood Count 4.82 M/mm3 (4.2-5.4); Red Cell Distribution Width 12.3 % (11.5-14.5); White Blood Count 4.3 K/mm3 (4.5-10.0)
[2024-04-02 13:06] LABS: Alanine Aminotransferase 20 U/L (6-35); Albumin Level 4.4 g/dL (3.5-5.1); Alkaline Phosphatase 42 U/L (38-126); Anion Gap 7 mmol/L (4-12); Aspartate Amino Transferase 25 U/L (14-36); Bilirubin,Total 0.7 mg/dL (0.2-1.3); Blood Urea Nitrogen 11 mg/dL (7-17); Calcium 9.3 mg/dL (8.4-10.2); Carbon Dioxide 31 mmol/L (22-30); Chloride 104 mmol/L (98-107); Cholesterol 154 mg/dL (0-200); Estimated Glomerular Filt Rate > 60; Glucose 85 mg/dL (65-110); HDL Direct 61 mg/dL; Potassium 3.8 mmol/L (3.4-5.0); Sodium 142 mmol/L (137-145); Triglycerides 47 mg/dL (<150)
[2024-04-02 13:17] LABS: LDL Cholesterol Direct 68 mg/dL
== END 2024-04-02 10:46 | disposition home or self-care (01) ==
PROVIDERS: PCP Family Medicine; Visit Provider Physician Assistant
DX: J45.909 Unspecified asthma, uncomplicated (principal); I25.10 Atherosclerotic heart disease of native coronary artery without angina pectoris; E78.2 Mixed hyperlipidemia
CPT/HCPCS: 36415; 80053; 80061; 85025

== ENCOUNTER 2024-08-24 08:26 | Outpatient (CLI) | payer MEDICARE, SELFPAY ==
--- NOTE | ~2024-08-24 | MM_ITS ---
EXAMINATION: MM screening birdie BI w jaleel HISTORY: Screening TECHNIQUE: Craniocaudal and mediolateral oblique 3-D tomosynthesis images were obtained and synthetic 2-D images were generated. CAD analysis was submitted and interpreted. COMPARISON: Comparison to multiple prior studies sequentially, with oldest reviewed study dated 10/21. BREAST PARENCHYMAL COMPOSITION: Dense: The breasts are heterogeneously dense, which may obscure small masses FINDINGS: There is no evidence of suspicious mass, calcification, or architectural distortion to sugg est malignancy in either breast. There has been no suspicious interval change. IMPRESSION: 1. No mammographic evidence of malignancy. 2. Recommend routine screening mammography in one year. BI-RADS Category 1: Negative Reviewed, dictated and finalized at location B.
--- OUTSIDE RECORDS SUMMARY | 2024-08-24 08:30 | XMS_ITS | Clinical Summary ---
Author Organization 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 Gender Identity Not on file Sexual Orientation [...] Health Maintenance Due Date Last Done Comments Colon Cancer Screening-Colonoscopy 1949 Depression Screening 1949 Fall Risk Assessment 1949 Hepatitis C Screening 1949 Osteoporosis Screening-Bone Density Scan 1949 DTaP/Tdap/Td Vaccine (1 - Tdap) 1960 Hepatitis B Screening 04/19/1967 Pneumococcal vaccine 65+ (1 of 1 - PCV) 04/19/1999 Zoster Vaccine (1 of 2) 04/19/1999 Well Visit 65+ 2014 Influenza Vaccine (Season Ended) [address] [place] [address] MDCR HMO REF [address] [id number] Care Teams Biblical Studies Professor Relationship Specialty Start Date End Date Sirisha Vargas MD [address] [facility] [address] [place] [address] PCP - General Family Medicine 08/28/18
--- OUTSIDE RECORDS SUMMARY | 2024-08-24 08:30 | XMS_ITS | Referral Summary ---
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
--- OUTSIDE RECORDS SUMMARY | 2024-08-24 08:30 | XMS_ITS | Clinical Summary ---
Author Organization [facility] Address [address] [place] [address] Care Team Providers Care Production Quality Analyst Name Role Phone Owen Orozco MD Primary Care Provider [phone] Social History Tobacco Use Types Packs/Day Years [...] Td Vaccines ( 1 - Tdap) 1968 Pneumococcal Vaccine: 50+ Ye ars (1 of 1 - PCV) 04/19/1999 Zoster Vaccines (1 of 2) 04/19/1999 Dexa Scan (General) 2014 COVID-19 Vaccine ( - 2023-2 5 season) 2023 RSV Immunization or 60+ Years (1 [...] age to complete this topic Care Teams Production Quality Analyst Relationship Specialty Start Date End Date Owen Orozco MD PCP - General 06/14/14
--- OUTSIDE RECORDS SUMMARY | 2024-08-24 08:30 | XMS_ITS | Clinical Summary ---
Author Organization [facility] Care Team Providers Care Anesthesiology Tech Name Role Phone Unavailable Primary Care Provider [...]
== END 2024-08-24 08:27 | disposition home or self-care (01) ==
LOC: ANHIMG 08:28
PROVIDERS: PCP Family Medicine; Visit Provider Physician Assistant
DX: Z12.31 Encounter for screening mammogram for malignant neoplasm of breast (principal)
CPT/HCPCS: 77063; 77067

== ENCOUNTER 2024-12-13 00:11 | Day surgery (SDC) | payer MEDICARE, SELFPAY ==
[2024-11-29 14:07] VITALS: BMI 26.9
--- NOTE | 2024-12-13 | S_PTH ---
PATIENT: Laura Guillory LOC: [facility] Prather#:[id number] AGE/SX: 74/F ROOM: RE12/13/[address]: Neil Oritz MD : 1950 BED: DIS: 12/13/2024 SPEC #: [id number] RECD: 12/13/24 14:32 STATUS: AMARJIT REBony #: [id number] SINTIA: 12/13/24 00:[address]: Neil Ortiz DEPT: [facility] Surgical RECD BY: Ethel Ruth ENTERED: 12/13/24 14:32 SP TYPE: Surgical OTHR DR: Erna Solorio PA-C Tissues: A - Colon Polypectomy Procedures: Hematoxylin and Eosin Stain Gross and Microscopic Level 4
[2024-12-13 10:43] VITALS: BP 147/61; PULSE 58; RESP 16; TEMP 36.4; O2SAT 100
[2024-12-13] MEDS: LACTATED RINGERS 1,000 ML 150 ML IV CONT (10:50)
--- NOTE | 2024-12-13 11:03 | PM.HPGS ---
History of Present Illness History of Present Illness Consent: Risks, benefits, and alternatives have been discussed and questions answered. Patient agrees to proceed with procedure. Chief complaint: Personal history of colon polyps, unspecified Narrative: Laura Guillory is a 74 year old female with colon polyp in 2019 Review of Systems Review of Systems: All systems reviewed & are unremarkable except as noted in HPI and below PMFSH Past Medical History Medical History (Updated 12/13/24 @ 11:04 by Neil Ortiz MD) Colon polyp Asthma Trigger finger of right hand Palmar fibromatosis TAINA (generalized anxiety disorder) Major depressive disorder, recurrent, moderate Sacroiliac joint pain Osteoporosis Colon cancer screening GERD (gastroesophageal reflux disease) Anxiety Restrictive lung disease Asthma Benign reactive hypertension Mixed hyperlipidemia BP (high blood pressure) CAD (coronary atherosclerotic disease) Surgical History Surgical History History of hand surgery Family History Family History Father Hypertension Cerebrovascular accident Mother Family history of heart disease in male family member before age 55 Patient's mother is Sibling Patient's sister is Patient's brother is Hypertension Social History Social History Social History: Smoking status: Never smoker Second hand tobacco smoke exposure: No Alcohol intake: never Substance use: never Substance use type: does not use Do You Feel Safe in your Home?: Yes Lack of Transportation: No Lack of Food: Sometimes True Current Housing: I Have Housing Concerned About Future Housing: No Difficulty Paying Gas/Electric Bills: No Difficulty Paying for Meds: No Currently Unemployed: No Education: Trade/Vocational Certificate Difficulty w/ Childcare or Family Care: Decline to Answer Living arrangements: with family Occupation/Education: retired Gender identity (if verbalized by the patient): Female Sexual Orientation (if Verbalized by the Patient): Straight or Heterosexual Spiritual care concerns: No Meds Home Medications and Allergies Home Medications ?Medication ?Instructions ?Recorded ?Confirmed ?Type aspirin 81 mg tablet,delayed 81 mg PO HS 12/12/20 12/13/24 History release albuterol sulfate 90 mcg/actuation See Rx Instructions .Route 10/30/24 11/29/24 Rx aerosol inhaler .COMPLEX #25.5 grams amlodipine 10 mg tablet See Rx Instructions .Route 11/01/24 12/13/24 Rx .COMPLEX #100 tabs budesonide-formoterol HFA 160 2 puff inhalation Q12H #10.2 grams 11/01/24 12/13/24 Rx mcg-4.5 mcg/actuation aerosol inhaler cholecalciferol (vitamin D3) 50 2,000 unit PO DAILY #90 tabs 11/01/24 12/13/24 Rx mcg (2,000 unit) tablet citalopram 10 mg tablet 10 mg PO DAILY #100 tabs 11/01/24 12/13/24 Rx fluticasone propionate 50 2 spray intranasal DAILY #16 grams 11/01/24 12/13/24 Rx mcg/actuation nasal spray,suspension (Flonase Allergy Relief) losartan 25 mg tablet See Rx Instructions .Route 11/01/24 12/13/24 Rx .COMPLEX #100 tabs montelukast 10 mg tablet 10 mg PO QHS #90 tabs 11/01/24 12/13/24 Rx simvastatin 10 mg tablet See Rx Instructions .Route 11/01/24 12/13/24 Rx .COMPLEX #100 tabs Allergies Allergy/AdvReac Type Severity Reaction Status Date / Time codeine AdvReac Intermediate SOB, FEELS Verified 12/13/24 10:41 LIKE THROAT IS CLOSING UP White Fish Allergy Severe HIVES, Uncoded 11/01/24 08:20 PASS OUT Vital Signs Vital Signs - 24 hr 12/13/24 10:43 Temperature 97.6 F Pulse Rate 58 L Respiratory Rate 16 Blood Pressure 147/61 H Pulse Oximetry 100 Oxygen Delivery Room Air Exam Const: General: comfortable and no acute distress HENMT: Face/Nose/Sinus: Normal nares present Eyes: General: appearance normal, both eyes and all related structures Neck: Neck: no JVD Resp: Auscultation: clear to auscultation bilaterally Cardio: Rate: regular rate Rhythm: regular rhythm GI: Inspection: non-distended GI Palp: Yes Soft to palpation Skin: General skin exam: normal color Extrem: General: normal to inspection Psych: Mental Status: mental status grossly normal Assessment and Plan Assessment and plan (1) Colon polyp: Code(s): K63.5 - Polyp of colon Status: Acute Assessment and Plan: colonoscopy
--- NOTE | 2024-12-13 11:04 | WPDANESEPPF ---
Anes - Initial Pre Proc Eval Procedure: Operation Date: 12/13/24 13:30 Proposed Procedures p Screening Colonoscopy - Neil Ortiz MD Date/Time: 12/13/24 11:04 Surgeon: Neil Ortiz MD Pre Op Diagnosis: Personal history of colon polyps, unspecified Patient Data Age: 74 Gender: F Height: 1.52 m Weight: 62.4 kg Last Vital Signs Temp 36.4 C 12/13/24 10:43 Pulse 58 L 12/13/24 10:43 Resp 16 12/13/24 10:43 BP 147/61 H 12/13/24 10:43 Pulse Ox 100 12/13/24 10:43 O2 Del Method Room Air 12/13/24 10:43 Allergies Allergy/AdvReac Type Severity Reaction Status Date / Time codeine AdvReac Intermediate SOB, FEELS Verified 12/13/24 10:41 LIKE THROAT IS CLOSING UP White Fish Allergy Severe HIVES, Uncoded 11/01/24 08:20 PASS OUT Home Medications ?Medication ?Instructions ?Recorded ?Confirmed ?Type aspirin 81 mg tablet,delayed 81 mg PO HS 12/12/20 12/13/24 History release albuterol sulfate 90 mcg/actuation See Rx Instructions .Route 10/30/24 11/29/24 Rx aerosol inhaler .COMPLEX #25.5 grams amlodipine 10 mg tablet See Rx Instructions .Route 11/01/24 12/13/24 Rx .COMPLEX #100 tabs budesonide-formoterol HFA 160 2 puff inhalation Q12H #10.2 grams 11/01/24 12/13/24 Rx mcg-4.5 mcg/actuation aerosol inhaler cholecalciferol (vitamin D3) 50 2,000 unit PO DAILY #90 tabs 11/01/24 12/13/24 Rx mcg (2,000 unit) tablet citalopram 10 mg tablet 10 mg PO DAILY #100 tabs 11/01/24 12/13/24 Rx fluticasone propionate 50 2 spray intranasal DAILY #16 grams 11/01/24 12/13/24 Rx mcg/actuation nasal spray,suspension (Flonase Allergy Relief) losartan 25 mg tablet See Rx Instructions .Route 11/01/24 12/13/24 Rx .COMPLEX #100 tabs montelukast 10 mg tablet 10 mg PO QHS #90 tabs 11/01/24 12/13/24 Rx simvastatin 10 mg tablet See Rx Instructions .Route 11/01/24 12/13/24 Rx .COMPLEX #100 tabs Patient hx anesthesia problems: none Family hx anesthesia problems: none Results Review: All pre-operative results and documents have been reviewed as part of the pre-operative evaluation. [facility] Past Medical History Medical History Colon polyp Asthma Trigger finger of right hand Palmar fibromatosis TAINA (generalized anxiety disorder) Major depressive disorder, recurrent, moderate Sacroiliac joint pain Osteoporosis Colon cancer screening GERD (gastroesophageal reflux disease) Anxiety Restrictive lung disease Asthma Benign reactive hypertension Mixed hyperlipidemia BP (high blood pressure) CAD (coronary atherosclerotic disease) Surgical History Surgical History History of hand surgery Family History Family History Father Hypertension Cerebrovascular accident Mother Family history of heart disease in male family member before age 55 Patient's mother is Sibling Patient's sister is Patient's brother is Hypertension Social History Social History Social History: Smoking status: Never smoker Second hand tobacco smoke exposure: No Alcohol intake: never Substance use: never Substance use type: does not use Do You Feel Safe in your Home?: Yes Lack of Transportation: No Lack of Food: Sometimes True Current Housing: I Have Housing Concerned About Future Housing: No Difficulty Paying Gas/Electric Bills: No Difficulty Paying for Meds: No Currently Unemployed: No Education: Trade/Vocational Certificate Difficulty w/ Childcare or Family Care: Decline to Answer Living arrangements: with family Occupation/Education: retired Gender identity (if verbalized by the patient): Female Sexual Orientation (if Verbalized by the Patient): Straight or Heterosexual Spiritual care concerns: No Anes - Eval Final PreProcedure Day of Procedure 12/13/24 11:04 Patient weight: normal Heart: regular rate and rhythm Lungs: clear to auscultation Airway: Mallampati scale class 1 Neurological: alert and oriented Last oral intake: >/= 8 hours ASA classification: III Emergent: no Anesthetic plan: proceed Anesthesia type and monitoring: general GIVS and standard monitoring Results Review: All pre-operative results and documents have been reviewed as part of the pre-operative evaluation. Informed Consent: The patient's anesthetic plan and its attendant risks and benefits were discussed with the patient/family/POA. Questions were solicited and answers provided to the satisfaction of the patient/family/POA.
[2024-12-13 11:22] VITALS: BP 96/46; PULSE 63; RESP 28; O2SAT 100
[2024-12-13 11:32] VITALS: BP 98/54; PULSE 52; RESP 21; O2SAT 100
[2024-12-13 11:42] VITALS: BP 129/60; PULSE 51; RESP 16; O2SAT 100
--- OUTSIDE RECORDS SUMMARY | 2024-12-13 15:56 | XMS_ITS | Clinical Summary ---
Author Organization [facility] Care Team Providers Care Medicare Nurse Name Role Phone Unavailable Primary Care Provider [...]
--- OUTSIDE RECORDS SUMMARY | 2024-12-13 15:56 | XMS_ITS | Clinical Summary ---
Author Organization [facility] Address [address] [place] [id number] Care Team Providers Care Day Care Home Provider Name Role Phone Owen Orozco MD Primary Care Provider [phone] Social History Tobacco Use Types Packs/Day Years [...] of 2) 04/19/1999 Dexa Scan (General) 2014 RSV Immunization or 60+ Years (1 - 1-dose 75+ series) 2024 COVID-19 Vaccine (1 - 2024-2 6 season) 2024 Influenza Adult (#1) 2024 Hepatitis A Vaccines Aged Out No long er eligible based on patient's age to complete this topic Meningococcal B Vaccine Aged Out No l onger eligible based on patient's age to complete this topic Meningococcal Vaccine Aged Out No clif foster eligible based on patient's age to complete this topic RSV Immunizations Under 20 Months Aged Out No longer eligible based on patient's age to complete this topic Care Teams Day Care Home Provider Relationship Specialty Start Date End Date Owen Orozco MD PCP - General 06/14/14
--- OUTSIDE RECORDS SUMMARY | 2024-12-13 15:56 | XMS_ITS | Clinical Summary ---
Author Organization [facility] [address] Address [address] [place] [address] Care Team Providers Care Grip Boss Name Role Phone Sirisha Vargas MD Primary [...] on file Legal Sex Female 1:29 AM [employer] O[employer] Gender Identity Not on file Sexual [...] Well Visit 65+ 2014 Influenza Vaccine (#1) [address] [place] [address] [employer] HMO REF [address] [id number] Care Teams Grip Boss Relationship Specialty Start Date End Date Sirisha Vargas MD [address] [facility] AT [facility] [address] [facility] [address] [place] [address] PCP - General Family Medicine 08/28/18
== END 2024-12-13 11:51 | disposition home or self-care (01) ==
PROVIDERS: PCP Physician Assistant; Referring Provider Physician Assistant; Visit Provider Internal Medicine Gastroenterology
PROC: 0DJD8ZZ Inspection of Lower Intestinal Tract, Via Natural or Artificial Opening Endoscopic (ICD-10-PCS; CPT 45378; principal; 2024-12-13 13:30)
DX: Z12.11 Encounter for screening for malignant neoplasm of colon (principal); D12.3 Benign neoplasm of transverse colon; K64.4 Residual hemorrhoidal skin tags; K21.9 Gastro-esophageal reflux disease without esophagitis; I10 Essential (primary) hypertension; E78.2 Mixed hyperlipidemia; I25.10 Atherosclerotic heart disease of native coronary artery without angina pectoris; M81.0 Age-related osteoporosis without current pathological fracture; J45.909 Unspecified asthma, uncomplicated; F41.9 Anxiety disorder, unspecified; F33.1 Major depressive disorder, recurrent, moderate; M72.0 Palmar fascial fibromatosis [Dupuytren]; J98.4 Other disorders of lung; Z79.82 Long term (current) use of aspirin; Z79.51 Long term (current) use of inhaled steroids; Z98.890 Other specified postprocedural states; Z82.49 Family history of ischemic heart disease and other diseases of the circulatory system
CPT/HCPCS: 45385; 88305; J2003; J2704; J7120